=== PATIENT | male | born 2000 | race Caucasian/White ===

== ENCOUNTER 2024-08-04 11:22 | Emergency (ER) | payer OTHER ==
[~2024-08-04] VITALS: Ht 160 cm; Wt 71.3 kg
[2024-08-04] MEDS ORDERED: ROZE8TAB16 PO (11:42)
[2024-08-04] MEDS ORDERED: PRAZ2CAP PO (11:42)
[2024-08-04] MEDS: DERMABOND TOPICAL SKIN ADHESIVE TOP ONE (13:25)
[2024-08-04 14:25] VITALS: BP 131/77; TEMP 98.2; O2SAT 99
== END 2024-08-04 14:29 | disposition home or self-care (01) ==
LOC: M ED 11:22
DX: R55 Syncope and collapse (principal); Z79.899 Other long term (current) drug therapy